=== PATIENT | male | born 1975 | race Caucasian/White ===

== ENCOUNTER 2020-05-10 09:24 | Emergency (ER) | payer OTHER, BC ==
[~2020-05-10] VITALS: Ht 177.8 cm; Wt 129.3 kg
[~2020-05-10 09:24] MED LIST: CARVEDILOL12.5 MG PO; CHLORTHALIDONE50 MG PO; CLONAZEPAM0.5 MG PO; CRUTCH1 EACH; FISH OIL + D31 EACH PO; FLAX OIL1000 MG PO; HYDROCODON-ACE1 EA11 PO; LAMOTRIGINE200 MG PO; LISINOPRIL40 MG PO; PERCOCET 5-3251 EACH PO; TESTOSTERO200 MG/1 M IM
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
== END 2020-05-10 11:16 | disposition home or self-care (01) ==
LOC: ED 09:24
DX: S40.012A Contusion of left shoulder, initial encounter (principal); V49.9XXA Car occupant (driver) (passenger) injured in unspecified traffic accident, initial encounter; I10 Essential (primary) hypertension; F17.200 Nicotine dependence, unspecified, uncomplicated; Z79.899 Other long term (current) drug therapy
CPT/HCPCS: 73030; 99284-25

== ENCOUNTER 2021-09-01 14:54 | Emergency (ER) | payer BC ==
[~2021-09-01] VITALS: Ht 177.8 cm; Wt 117.9 kg
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
[2021-09-01] MEDS ORDERED: METFORMIN HCL500 M1 PO (17:23)
[2021-09-01] MEDS ORDERED: VITAMIN D21250 MCG PO (17:24)
== END 2021-09-01 19:10 | disposition home or self-care (01) ==
LOC: ED 14:54
DX: H83.03 Labyrinthitis, bilateral (principal); I10 Essential (primary) hypertension; G47.30 Sleep apnea, unspecified; R73.03 Prediabetes; F17.200 Nicotine dependence, unspecified, uncomplicated; Z79.899 Other long term (current) drug therapy; Z79.84 Long term (current) use of oral hypoglycemic drugs
CPT/HCPCS: 99283